=== PATIENT | female | born 1960 | race Caucasian/White ===

== ENCOUNTER 2021-11-15 11:21 | Outpatient (CLI) | payer MEDICARE, MEDICAID, SELFPAY | END 2021-11-15 11:22 | disposition home or self-care (01) | DX: H90.3 Sensorineural hearing loss, bilateral (principal) | CPT/HCPCS: 92553; 92555; 92567 ==

== ENCOUNTER 2022-01-03 10:54 | Outpatient (RCR) | payer MEDICAID, SELFPAY | END 2022-04-03 23:59 | disposition home or self-care (01) | LOC: ANHBWCAUD 10:54 | DX: Z46.1 Encounter for fitting and adjustment of hearing aid (principal) | CPT/HCPCS: V5160; V5261; V5264 ==